=== PATIENT | female | born 1935 | race Caucasian/White ===

== ENCOUNTER 2016-11-20 16:17 | Emergency (ER) | payer MEDICARE, BC ==
--- NOTE | 2016-11-20 20:29 | RAD ---
INDICATION: RIGHT lower extremity pain and edema mid thigh to ankle. COMPARISON: None. TECHNIQUE: Jones scale, color Doppler, and spectral analysis of the deep veins of the RIGHT lower extremity. Vessel compression, phasicity, and augmentation assessed. REPORT: The RIGHT common femoral, great saphenous, profunda femoral, femoral, popliteal, peroneal, and posterior tibial veins are patent. Obesity limits assessment of the peroneal veins. Subcutaneous edema noted most prominent at the posterior mid calf. No loculated fluid collection visualized. Patency of the contralateral common femoral vein documented. IMPRESSION: No evidence for RIGHT lower extremity deep venous thrombosis.
--- NOTE | 2016-11-20 21:22 | ED ---
Marion Bolaños Rebecca, scribed for Kirk Heredia MD on 11/20/16 at 1845 . Lower Extremity - HPI Summary HPI Summary: Pt is an 81 y/o F who presents to ED c/o R knee pain. Knee pain is acute on chronic and worsened yesterday. Pain is discrete to the R knee, is characterized as sharp and currently ranked 6/10. Sx aggravated by ambulation, alleviated by Tramadol and Prednisone. Denies any other sx including fever. Pt reports recent dx of both menisci in her knee being torn. Was previously on Tramadol and Prednisone to treat pain, which had been alleviating sx, but she no longer have prescriptions for them. Reports that she had been walking with her cane, as opposed to a walker. Was evaluated by Dr. Haddad who wanted to do surgery but decided against it due to her PMHx. Pt was referred to [facility] ED by her PCP for further evaluation. - History of Current Complaint Chief Complaint: EDExtremityLower Stated Complaint: RIGHT LEG PAIN Time Seen by Provider: 11/20/16 18:31 Hx Obtained From: Patient Onset of Pain: Prior to Arrival Onset/Duration: Days - 2 days ago Severity Initially: Moderate Severity Currently: Severe Pain Intensity: 9 Pain Scale Used: 0-10 Numeric Timing: Constant Location: Is Discrete @ - R knee Character Of Pain: Sharp Associated Signs And Symptoms: Positive: Knee Pain - Right. Negative: Fever Aggravating Factor(s): Ambulation Alleviating Factor(s): Other - Tramadol and Prednisone Able to Bear Weight: Yes - with a cane/walker - Allergies/Home Medications Allergies/Adverse Reactions: Allergies Allergy/AdvReac Type Severity Reaction Status Date / Time Codeine Allergy Intermediate Hives Verified 08/09/14 14:20 opioid analgesics Allergy Unknown Rash Uncoded 08/09/14 14:20 PMH/Surg Hx/FS Hx/Imm Hx Endocrine/Hematology History: Reports: Hx Diabetes Cardiovascular History: Reports: Hx Coronary Artery Disease, Hx Hypercholesterolemia, Hx Hypertension, Hx Valvular Heart Disease - mitral valve Denies: Hx Myocardial Infarction Respiratory History: Reports: Hx Chronic Obstructive Pulmonary Disease (COPD), Hx Sleep Apnea - new dx 04/2014 Denies: Hx Asthma Musculoskeletal History: Reports: Hx Back Problems - chronic pain Sensory History: Reports: Hx Macular Degeneration Opthamlomology History: Reports: Hx Macular Degeneration Neurological History: Reports: Hx Transient Ischemic Attacks (TIA) - 2007, Other Neuro Impairments/Disorders - vertigo - Cancer History Cancer Type, Location and Year: RIGHT BREAST 2012 Hx Chemotherapy: Yes - Surgical History Surgery Procedure, Year, and Place: [facility]. CHOLECYSTECTOMY. APPENDECTOMY. CATARACT SURGERY. CARDIAC STENT. lUMPECTOMY AXILLARY DISSECTION Infectious Disease History: Yes Infectious Disease History: Denies: Traveled Outside the [place] in Last 30 Days - Family History Known Family History: Positive: Diabetes - Social History Alcohol Use: None Substance Use Type: Reports: None Smoking Status (MU): Former Smoker Amount Used/How Often: 2 PPD Have You Smoked in the Last Year: No Review of Systems Negative: Fever Positive: Arthralgia - R knee pain secondary to menisci tear All Other Systems Reviewed And Are Negative: Yes Physical Exam - Summary Physical Exam Summary: Vital signs: reviewed General: Patient is comfortable lying in stretcher with no signs of distress HEENT: within normal limits Lungs: CTA B/L CVS: S1 & S2 present. No murmurs appreciated. Abdomen: Soft, NT, Positive BS. Extremities: FROM x4, no edema, no cyanosis, positive pulses Neuro: Alert and oriented x 3. No acute neurological deficits. Skin: Warm and dry Vital Signs On Initial Exam: Initial Vitals Temp Pulse Resp BP Pulse Ox 97.1 F 78 20 167/63 92 11/20/16 16:27 11/20/16 16:27 11/20/16 16:27 11/20/16 16:27 11/20/16 16:27 Diagnostics - Vital Signs Vital Signs Temp Pulse Resp BP Pulse Ox 11/20/16 16:27 97.1 F 78 20 167/63 92 - Laboratory Lab Statement: Any lab studies that have been ordered have been reviewed, and results considered in the medical decision making process. - Ultrasound No standard instances Ultrasound Interpretation Completed By: Radiologist - Venous Doppler Study: No evidence for RIGHT lower extremity deep venous thrombosis. Re-Evaluation - Re-Evaluation First Eval Re-Evaluation Time: 20:42 Change: Improved Comment: Pt is feeling signficantly better. Lower Extremity Course/Dx - Course Assessment/Plan: 81 y/o F who presents to ED with a CC of R knee pain. She reports that she has Hx of meniscal tears for which she used ultram and prednisone 1 month ago. In the last couple days she has been overdoing it, cleaning bathrooms in the house and now she is having R knee pain, similar to previous episode. She has no Hx of trauma. Positive heavy lifting. PCP sent to ED to r/o DVT. US shows no DVT. Pt already had prescription for ultram, therefore pt will be d/c to home with a follow up with PCP and orthopedist. Pt is hemodynamically stable and AxO x3. I discussed all my findings and test results with the patient. Patient understands and agrees. Patient was instructed to return to the emergency room immediately if any of the symptoms return or worsens. Patient understands and agrees. Plan of care was discussed with the patient and patient understands and agrees with the plan of care. All questions were answered at patient satisfaction. There were no further complaints or concerns. Patient was instructed to follow up with primary care physician within 3 to 5 days. Patient is hemodynamically stable. Patient is alert and oriented x 3. No acute neurological deficits. - Diagnoses Provider Diagnoses: Knee pain, Chronic meniscal tear of knee Discharge - Discharge Plan Condition: Stable Disposition: HOME Patient Education Materials: Knee Pain (ED) Referrals: Tasha Kaye MD [Primary Care Provider] - 3 Days (Follow up with your primary care physician within the next 3 days. ) Eleazar Marquez MD [Medical Doctor] - 3 Days (Follow up with your orthopedist, Dr. Marquez, within the next 3 days. ) Additional Instructions: Return to ED for any returning or worsening of symptoms. The documentation as recorded by the Marion barker Rebecca accurately reflects the service I personally performed and the decisions made by me, Kirk Heredia MD.
[2016-11-20 21:27] VITALS: BP 132/70
== END 2016-11-20 21:26 | disposition home or self-care (01) ==
LOC: ED 16:17
DX: S83.206A Unspecified tear of unspecified meniscus, current injury, right knee, initial encounter (principal); M54.9 Dorsalgia, unspecified; G89.29 Other chronic pain; I25.10 Atherosclerotic heart disease of native coronary artery without angina pectoris; E78.00 Pure hypercholesterolemia, unspecified; Z86.73 Personal history of transient ischemic attack (TIA), and cerebral infarction without residual deficits; J44.9 Chronic obstructive pulmonary disease, unspecified; G47.30 Sleep apnea, unspecified; Z87.891 Personal history of nicotine dependence; Z88.5 Allergy status to narcotic agent; E11.9 Type 2 diabetes mellitus without complications; R60.0 Localized edema
CPT/HCPCS: 99284

== ENCOUNTER 2017-12-18 04:02 | Emergency (ER) | payer MEDICARE, BC ==
[2017-12-18] MEDS ORDERED: Ondansetron INJ* 2 MG/ML VIAL IV ONE (04:38)
[2017-12-18] MEDS ORDERED: Morphine INJ* 4 MG/ML 1 ML CARPUJECT IV ONE ×2 (04:38→05:59)
[2017-12-18 05:20] LABS: ABS Basophils 0 10^3/ul (0-0.2); ABS Eosinophils 0.1 10^3/ul (0-0.6); ABS Lymphocytes 1.3 10^3/ul (1.0-4.8); ABS Monocytes 0.7 10^3/ul (0-0.8); ABS Neutrophils 9.6 10^3/ul (1.5-7.7); ABS Nucleated RBC 0 10^3/ul; Eosinophil % 1.1 % (0-6); Hematocrit 37 % (35-47); Hemoglobin 12.1 g/dl (12.0-16.0); Lymphocyte % 11.1 % (25-47); Mean Corpuscular HGB Conc 33 g/dl (31-36); Mean Corpuscular Hemoglobin 31 pg (27-31); Mean Corpuscular Volume 94 fL (80-97); Mean Platelet Volume 9 um3 (7.4-10.4); Nucleated Red Blood Cells % 0; Platelet Count 202 10^3/ul (150-450); Red Blood Count 3.98 10^6/ul (4.0-5.4); Red Cell Distribution Width 16 % (10.5-15); White Blood Count 11.8 10^3/ul (3.5-10.8)
[2017-12-18 05:34] LABS: EGFR Non-African American 34.6 (>60)
[2017-12-18 05:58] LABS: INR 1.59 (0.77-1.02)
--- NOTE | 2017-12-18 07:25 | ED ---
Tabitha Bolaños Thomas, scribed for Kumar Thakkar MD on 12/18/17 at 0433 . Throat Pain/Nasal Congestion - HPI Summary HPI Summary: The patient is an 82 year old female presenting with left-sided ear pain and left-sided jaw pain for the last three days. She has not been able to open up her mouth fully. She suspects she may have injured her jaw while eating raw carrots. She rates the pain 5/10. She feels dehydrated. She has not been eating normally today. - History of Current Complaint Chief Complaint: EDEarPain Hx Obtained From: Patient Onset/Duration: Lasting Days - 3, Still Present Severity: Moderate Associated Signs And Symptoms: Positive: Negative Cough: None Related History: Other (Noted In Comments) - May have hurt jaw while eating carrot - Allergies/Home Medications Allergies/Adverse Reactions: Allergies Allergy/AdvReac Type Severity Reaction Status Date / Time MS Codeine [Codeine] Allergy Intermediate Hives Verified 12/18/17 04:07 opioid analgesics Allergy Unknown Rash Uncoded 12/18/17 04:07 PMH/Surg Hx/FS Hx/Imm Hx Endocrine/Hematology History: Reports: Hx Diabetes Cardiovascular History: Reports: Hx Coronary Artery Disease, Hx Hypercholesterolemia, Hx Hypertension, Hx Valvular Heart Disease - mitral valve Denies: Hx Myocardial Infarction Respiratory History: Reports: Hx Chronic Obstructive Pulmonary Disease (COPD), Hx Sleep Apnea - new dx 04/2014 Denies: Hx Asthma Musculoskeletal History: Reports: Hx Back Problems - chronic pain Sensory History: Reports: Hx Macular Degeneration Opthamlomology History: Reports: Hx Macular Degeneration Neurological History: Reports: Hx Transient Ischemic Attacks (TIA) - 2006, Other Neuro Impairments/Disorders - vertigo - Cancer History Cancer Type, Location and Year: RIGHT BREAST 2011 Hx Chemotherapy: Yes - Surgical History Surgery Procedure, Year, and Place: [facility]. CHOLECYSTECTOMY. APPENDECTOMY. CATARACT SURGERY. CARDIAC STENT. lUMPECTOMY AXILLARY DISSECTION Infectious Disease History: No Infectious Disease History: Denies: Traveled Outside the [place] in Last 30 Days - Family History Known Family History: Positive: Diabetes - Social History Alcohol Use: None Substance Use Type: Reports: None Smoking Status (MU): Former Smoker Amount Used/How Often: 2 PPD Have You Smoked in the Last Year: No Review of Systems Negative: Fever Positive: Ear Ache All Other Systems Reviewed And Are Negative: Yes Physical Exam - Summary Physical Exam Summary: General: well-appearing, no pain distress Skin: warm, color reflects adequate perfusion, dry Head: normal Eyes: EOMI, PRISCA ENT: She is tender at the angle of the left jaw and at the TMJ. She has serous otitis media of the left TM. Oral mucosa is dry. She does not open her mouth more than 2 cm. Neck: supple, nontender Respiratory: CTA, breath sounds present Cardiovascular: RRR Abdomen: soft, nontender Bowel: present Musculoskeletal: normal, strength/ROM intact Neurological: normal, sensory/motor intact, A&O x3 Psychological: affect/mood appropriate Triage Information Reviewed: Yes Vital Signs On Initial Exam: Initial Vitals Temp Pulse Resp BP Pulse Ox 97.0 F 87 20 190/82 94 12/18/17 04:04 12/18/17 04:04 12/18/17 04:04 12/18/17 04:04 12/18/17 04:04 Vital Signs Reviewed: Yes Diagnostics - Vital Signs Vital Signs Temp Pulse Resp BP Pulse Ox 12/18/17 04:04 97.0 F 87 20 190/82 94 - Laboratory Lab Results: Lab Results 12/18/17 12/18/17 12/18/17 Range/Units 05:00 05:00 05:00 WBC 11.8 H (3.5-10.8) 10^3/ul RBC 3.98 L (4.0-5.4) 10^6/ul Hgb 12.1 (12.0-16.0) g/dl Hct 37 (35-47) % MCV 94 (80-97) fL MCH 31 (27-31) pg MCHC 33 (31-36) g/dl RDW 16 H (10.5-15) % Plt Count 202 (150-450) 10^3/ul MPV 9 (7.4-10.4) um3 Neut % (Auto) 81.1 (38-83) % Lymph % (Auto) 11.1 L (25-47) % [place] % (Auto) 6.3 (1-9) % Eos % (Auto) 1.1 (0-6) % Baso % (Auto) 0.4 (0-2) % Absolute Neuts (auto) 9.6 H (1.5-7.7) 10^3/ul Absolute Lymphs (auto) 1.3 (1.0-4.8) 10^3/ul Absolute Monos (auto) 0.7 (0-0.8) 10^3/ul Absolute Eos (auto) 0.1 (0-0.6) 10^3/ul Absolute Basos (auto) 0 (0-0.2) 10^3/ul Absolute Nucleated RBC 0 10^3/ul Nucleated RBC % 0 INR (Anticoag Therapy) 1.59 H (0.77-1.02) APTT 35.2 (26.0-36.3) seconds Sodium 138 (133-145) mmol/L Potassium 4.6 (3.5-5.0) mmol/L Chloride 103 (101-111) mmol/L Carbon Dioxide 26 (22-32) mmol/L Anion Gap 9 (2-11) mmol/L BUN 31 H (6-24) mg/dL Creatinine 1.45 H (0.51-0.95) mg/dL Est GFR ( Amer) 44.5 (>60) Est GFR (Non-Af Amer) 34.6 (>60) BUN/Creatinine Ratio 21.4 H (8-20) Glucose 147 H (70-100) mg/dL Lactic Acid (0.5-2.0) mmol/L Calcium 10.2 (8.6-10.3) mg/dL Total Bilirubin 0.50 (0.2-1.0) mg/dL AST 25 (13-39) U/L ALT 22 (7-52) U/L Alkaline Phosphatase 81 (34-104) U/L C-Reactive Protein 8.40 H (< 5.00) mg/L Total Protein 7.6 (6.4-8.9) g/dL Albumin 4.0 (3.2-5.2) g/dL Globulin 3.6 (2-4) g/dL Albumin/Globulin Ratio 1.1 (1-3) 12/18/17 Range/Units 05:00 WBC (3.5-10.8) 10^3/ul RBC (4.0-5.4) 10^6/ul Hgb (12.0-16.0) g/dl Hct (35-47) % MCV (80-97) fL MCH (27-31) pg MCHC (31-36) g/dl RDW (10.5-15) % Plt Count (150-450) 10^3/ul MPV (7.4-10.4) um3 Neut % (Auto) (38-83) % Lymph % (Auto) (25-47) % [place] % (Auto) (1-9) % Eos % (Auto) (0-6) % Baso % (Auto) (0-2) % Absolute Neuts (auto) (1.5-7.7) 10^3/ul Absolute Lymphs (auto) (1.0-4.8) 10^3/ul Absolute Monos (auto) (0-0.8) 10^3/ul Absolute Eos (auto) (0-0.6) 10^3/ul Absolute Basos (auto) (0-0.2) 10^3/ul Absolute Nucleated RBC 10^3/ul Nucleated RBC % INR (Anticoag Therapy) (0.77-1.02) APTT (26.0-36.3) seconds Sodium (133-145) mmol/L Potassium (3.5-5.0) mmol/L Chloride (101-111) mmol/L Carbon Dioxide (22-32) mmol/L Anion Gap (2-11) mmol/L BUN (6-24) mg/dL Creatinine (0.51-0.95) mg/dL Est GFR ( Amer) (>60) Est GFR (Non-Af Amer) (>60) BUN/Creatinine Ratio (8-20) Glucose (70-100) mg/dL Lactic Acid 1.0 (0.5-2.0) mmol/L Calcium (8.6-10.3) mg/dL Total Bilirubin (0.2-1.0) mg/dL AST (13-39) U/L ALT (7-52) U/L Alkaline Phosphatase (34-104) U/L C-Reactive Protein (< 5.00) mg/L Total Protein (6.4-8.9) g/dL Albumin (3.2-5.2) g/dL Globulin (2-4) g/dL Albumin/Globulin Ratio (1-3) Result Diagrams: 12/18/17 05:00 12/18/17 05:00 Lab Statement: Any lab studies that have been ordered have been reviewed, and results considered in the medical decision making process. - CT CT Maxillofacial CT Interpretation Completed By: ED Physician - CT is ordered--see [employer] CT Brain CT Interpretation Completed By: ED Physician [facility]Spine CT Interpretation Completed By: ED Physician - [facility] Course/Dx - Course Course Of Treatment: Medications reviewed. BP noted and patient urged primary care follow-up. Allergies noted. CT REPORT AND DISPOSITION PENDING AT SHIFT CHANGE - Diagnoses Provider Diagnoses: Uncontrolled hypertension, Jaw pain, Ear pain, left Discharge - Discharge Plan Condition: Stable Disposition: OTHER Discharge Disposition Comment: . Referrals: Tasha Kaey MD [Primary Care Provider] - The documentation as recorded by the Tabitha barker Thomas accurately reflects the service I personally performed and the decisions made by me, Kumar Thakkar MD.
--- NOTE | 2017-12-18 07:31 | RAD ---
HISTORY: ear pain COMPARISONS: March 07, 2017 TECHNIQUE: Multiple contiguous axial CT scans were obtained of the head without intravenous contrast. FINDINGS: HEMORRHAGE/INFARCT: There is no hemorrhage or acute infarct. MASSES/SHIFT: There is no mass or shift. EXTRA-AXIAL SPACES: There are no extra-axial fluid collections. SULCI AND VENTRICLES: The sulci and ventricles are normal in size and position for the patient's stated age. CEREBRUM: There is hypoattenuation of the periventricular and subcortical white matter. BRAINSTEM: There are no focal parenchymal abnormalities. CEREBELLUM: There are no focal parenchymal abnormalities. VESSELS: The vessels are grossly normal. PARANASAL SINUSES: The paranasal sinuses are clear. ORBITS: The orbits are unremarkable. BONES AND SOFT TISSUE: No bone or soft tissue abnormalities are noted. OTHER: None IMPRESSION: NO ACUTE INTRACRANIAL PATHOLOGY. CHRONIC SMALL VESSEL ISCHEMIC CHANGE.
--- NOTE | 2017-12-18 07:34 | RAD ---
HISTORY: Left neck pain, ear pain COMPARISONS: None TECHNIQUE: Multiple contiguous axial CT scans were obtained of the face without intravenous contrast, with coronal and sagittal multiplanar reformations. FINDINGS: BONES: There is no displaced fracture or dislocation. The orbital rim is intact. The zygomatic arch is intact. The pterygoid plates are intact. ORBITS: The globes are round. The optic nerves are symmetric. The extraocular musculature is normal. There is no post septal or intraconal inflammatory change. There is no retrobulbar hematoma. PARANASAL SINUSES: There is mucosal thickening of the sphenoid sinus. There is a small air-fluid level within the sphenoid sinus. BRAIN AND SOFT TISSUE: Unremarkable. OTHER: None. IMPRESSION: 1. NO FACIAL FRACTURE. 2. MINIMAL SINUS MUCOSAL INFLAMMATORY DISEASE, WITH AN AIR-FLUID LEVEL IN THE SPHENOID SINUS. IN THE CORRECT CLINICAL SETTING, THIS MAY REPRESENT ACUTE SINUSITIS
--- NOTE | 2017-12-18 08:10 | RAD ---
HISTORY: Left neck pain COMPARISONS: None TECHNIQUE: Multiple contiguous axial CT scans were obtained of the cervical spine without intravenous contrast, with coronal and sagittal multiplanar reformations. FINDINGS: BRAIN: The visualized brain is unremarkable CENTRAL CANAL: Evaluation of the central canal is limited on CT technique; however, there is no obvious canalicular mass or epidural hemorrhage. ALIGNMENT: The alignment is normal, without subluxation or dislocation. VERTEBRAL BODIES: There is multilevel anterolateral marginal osteophyte formation. There is diffuse osteopenia. There is no displaced fracture. Incidentally noted is a dysraphic defect of the posterior arch of C1. Incidentally noted is a persistent subdental synchondrosis. JOINTS: There is uncovertebral and facet osteoarthritis. MUSCULATURE: Unremarkable INTERVERTEBRAL DISCS: There is diffuse loss of intervertebral disc height. AXIAL IMAGES: C2-C3: There is no osseous neural foraminal narrowing or central canal stenosis. C3-C4: There is no osseous neural foraminal narrowing or central canal stenosis. C4-C5: There is a calcified central disc protrusion versus posterior osteophyte measuring 0.3 cm in depth. There is bilateral uncovertebral hypertrophy. There is no significant osseous neural foraminal narrowing or central canal stenosis. C5-C6: There is bilateral vertebral hypertrophy with mild right neuroforaminal narrowing. There is mild narrowing of the central canal. C6-C7: There is bilateral uncovertebral hypertrophy. There is moderate bilateral neural foraminal narrowing. There is mild narrowing of the central canal. C7-T1: There is no osseous neural foraminal narrowing or central canal stenosis. SOFT TISSUES: There is biapical centrilobular emphysematous change. There is pleural parenchymal scarring of the lung apices bilaterally. There is calcification of the carotid bifurcations. The prevertebral fat stripe is preserved. The thyroid gland is atrophic OTHER: None. IMPRESSION: 1. OSTEOPENIA. 2. DEGENERATIVE DISC DISEASE AND OSTEOARTHRITIS. 3. EMPHYSEMA. 4. ATHEROSCLEROSIS. 5. THERE IS MULTILEVEL NEURAL FORAMINAL NARROWING RIGHT ABOVE. 6. THERE IS MILD NARROWING OF CENTRAL CANAL AT C5-C6 AND C6-C7.
[2017-12-18] MEDS ORDERED: NS 0.9% 1000 ML* 2,000 ML IV ONE (08:42)
[2017-12-18] MEDS ORDERED: Ketorolac INJ* 30 MG/ML 1 ML VIAL IV PUSH ONE (08:57)
[2017-12-18] MEDS ORDERED: Diazepam SYRINGE* 5 MG/ML 2 ML SYRINGE (10 MG total) IV ONE (08:57)
[2017-12-18] MEDS ORDERED: Diazepam TAB(*) 5 MG PO ONE (09:56)
[2017-12-18] MEDS ORDERED: Diazepam INJ (NF) 5 MG/ML 10 ML VIAL (50 MG TOTAL) IV ONE (10:00)
[2017-12-18 12:04] VITALS: BP 148/72
--- NOTE | 2017-12-21 13:23 | ED ---
I, Radha Jasso, scribed for Shade Olsen MD on 12/18/17 at 0751 . Progress - Progress Note Progress Note: Pt has serous effusion of L tympanic membrane. - Results/Orders Results/Orders: Maxillofacial CT shows: 1. NO FACIAL FRACTURE. 2. MINIMAL SINUS MUCOSAL INFLAMMATORY DISEASE, WITH AN AIR-FLUID LEVEL IN THE SPHENOID SINUS. IN THE CORRECT CLINICAL SETTING, THIS MAY REPRESENT ACUTE SINUSITIS Brain CT shows: NO ACUTE INTRACRANIAL PATHOLOGY. CHRONIC SMALL VESSEL ISCHEMIC CHANGE. Cervical Spine CT shows: 1. OSTEOPENIA. 2. DEGENERATIVE DISC DISEASE AND OSTEOARTHRITIS. 3. EMPHYSEMA. 4. ATHEROSCLEROSIS. 5. THERE IS MULTILEVEL NEURAL FORAMINAL NARROWING RIGHT ABOVE. 6. THERE IS MILD NARROWING OF CENTRAL CANAL AT C5-C6 AND C6-C7. Re-Evaluation - Re-Evaluation First Eval Re-Evaluation Time: 11:43 Change: Improved - She says she would like to go home. Pt relates pain to significant chewing due to eating lots of raw vegetables over last few weeks. Course/Dx - Course Course Of Treatment: Medications reviewed. BP noted and patient urged primary care follow-up. Allergies noted. The pt has focal tenderness over angle of jaw. Mild trismus. Pt feels much better. She says she would like to go home. Pt relates pain to significant chewing due to eating lots of raw vegetables over last few weeks. CTs are negative. No sign of dental infection, fracture or abscess. Labs unremarkable, does not suspect acute coronary syndrome. All pain is reproducible. ED physician advised pt not to take Valium with Tramadol. - Diagnoses Provider Diagnoses: Uncontrolled hypertension, Jaw pain, Ear pain, left, Strain of masseter muscle , Acute serous otitis media, left ear The documentation as recorded by the Romero barker Stephanie accurately reflects the service I personally performed and the decisions made by me, Shaed Olsen MD.
== END 2017-12-18 12:40 ==
LOC: ED 04:02
DX: I10 Essential (primary) hypertension (principal); M51.35 Other intervertebral disc degeneration, thoracolumbar region; M85.80 Other specified disorders of bone density and structure, unspecified site; I70.90 Unspecified atherosclerosis; H65.92 Unspecified nonsuppurative otitis media, left ear; Y92.9 Unspecified place or not applicable; R68.84 Jaw pain; H92.02 Otalgia, left ear; T14.8XXA Other injury of unspecified body region, initial encounter; X58.XXXA Exposure to other specified factors, initial encounter
CPT/HCPCS: 36415; 70450; 70486; 72125; 80053; 83605; 85025; 85610; 85730; 86140; 96374; 96375; 99283; J1885; J2270; J2405; J3360

== ENCOUNTER 2020-06-30 14:31 | Inpatient (IN) ==
[2020-06-30 17:08] LABS: ABS Eosinophils 0.3 10^3/ul (0-0.6); ABS Lymphocytes 2.3 10^3/ul (1.0-4.8); ABS Neutrophils 9.2 10^3/ul (1.5-7.7); Hematocrit 33 % (35-47); Hemoglobin 10.9 g/dL (12.0-16.0); Mean Corpuscular HGB Conc 33 g/dL (31-36); Mean Corpuscular Hemoglobin 31 pg (27-31); Mean Corpuscular Volume 94 fL (80-97); Mean Platelet Volume 9.6 fL (7.4-10.4); Platelet Count 221 10^3/uL (150-450); Red Blood Count 3.51 10^6 /uL (3.70-4.87); Red Cell Distribution Width 17 % (10-15); White Blood Count 12.8 10^3/uL (3.5-10.8)
[2020-06-30 17:22] LABS: INR 1.48 (0.82-1.09)
[2020-06-30 17:25] LABS: Albumin 3.9 g/dL (3.2-5.2); Albumin/Globulin Ratio 1.1 (1-3); BUN/Creatinine Ratio 31.6 (8-20); Calcium 10.4 mg/dL (8.6-10.3); EGFR African American 38.5 (>60); EGFR Non-African American 31.8 (>60); Globulin 3.6 g/dL (2-4); Potassium 3.8 mmol/L (3.5-5.0); Total Bilirubin 0.3 mg/dL (0.2-1.0); Total Protein 7.5 g/dL (6.4-8.9)
[2020-06-30] MEDS ORDERED: Pantoprazole VIAL 40 MG VIAL IV ONE (21:19)
[2020-06-30] MEDS ORDERED: Pantoprazole 80 mg in NS BAG 80 MG/250 ML BAG IV SCH (22:00)
[2020-06-30] MEDS ORDERED: Albuterol HFA INHALER 8 gm MDI INH PRN (22:54)
[2020-06-30 23:10] LABS: ABS Eosinophils 0.2 10^3/ul (0-0.6); ABS Lymphocytes 2.1 10^3/ul (1.0-4.8); ABS Monocytes 0.9 10^3/ul (0-0.8); ABS Neutrophils 8.8 10^3/ul (1.5-7.7); Eosinophil % 1.9 %; Hematocrit 32 % (35-47); Hemoglobin 10.3 g/dL (12.0-16.0); Lymphocyte % 17.5 %; Mean Corpuscular HGB Conc 32 g/dL (31-36); Mean Corpuscular Hemoglobin 31 pg (27-31); Mean Corpuscular Volume 94 fL (80-97); Mean Platelet Volume 9.2 fL (7.4-10.4); Platelet Count 204 10^3/uL (150-450); Red Blood Count 3.39 10^6 /uL (3.70-4.87); Red Cell Distribution Width 16 % (10-15); White Blood Count 12.1 10^3/uL (3.5-10.8)
[2020-07-01] MEDS: NS 0.9% 1000 ml BAG 1,000 ML IV SCH ×2 (02:56→16:35)
[2020-07-01] MEDS: Tiotropium Brom/Olodaterol MDI INH SCH (07:35)
[2020-07-01] MEDS: Pantoprazole VIAL 40 MG VIAL IV SCH ×2 (08:20→20:55)
[2020-07-01] MEDS ORDERED: fentaNYL 100 mcg/2 ml 50 MCG/ML VIAL ONE (11:35)
[2020-07-01] MEDS ORDERED: Midazolam 10 mg/10 ml VIAL 1 mg/ml 10 ml VIAL (10 mg) ONE (11:35)
[2020-07-01] MEDS: Sucralfate 1 gm SUSP 1 GM/10 ML UDC PO SCH (16:33)
[2020-07-01 17:54] LABS: Hematocrit 28 % (35-47); Hemoglobin 9.3 g/dL (12.0-16.0)
[2020-07-01] MEDS ORDERED: PEG 3000 GI LAVAGE 1 GALLON PO ONE (18:03)
[2020-07-02] MEDS ORDERED: PEG 3000 GI LAVAGE 1 GALLON PO ONE (06:00)
[2020-07-02] MEDS: Pantoprazole VIAL 40 MG VIAL IV SCH ×2 (07:50→19:46)
[2020-07-02] MEDS: Sucralfate 1 gm SUSP 1 GM/10 ML UDC PO SCH ×3 (08:08→16:54)
[2020-07-02] MEDS: Tiotropium Brom/Olodaterol MDI INH SCH (08:10)
[2020-07-02] MEDS: NS 0.9% 1000 ml BAG 1,000 ML IV SCH ×2 (10:34→19:45)
[2020-07-02 12:12] LABS: Hematocrit 27 % (35-47)
[2020-07-02] MEDS ORDERED: Midazolam 10 mg/10 ml VIAL 1 mg/ml 10 ml VIAL (10 mg) ONE (12:16)
[2020-07-02] MEDS ORDERED: fentaNYL 100 mcg/2 ml 50 MCG/ML VIAL ONE (12:16)
[2020-07-02 12:23] LABS: BUN/Creatinine Ratio 23.3 (8-20); Calcium 9.2 mg/dL (8.6-10.3); EGFR African American 41.2 (>60); Potassium 4.8 mmol/L (3.5-5.0)
[2020-07-02] MEDS ORDERED: Ondansetron 4 mg VIAL 2 MG/ML 2 ml VIAL ONE (13:15)
[2020-07-02] MEDS ORDERED: Iodixanol (CONTRAST) 320 MG/ML 100 ML SDV IV ONE (18:32)
[2020-07-02 20:56] LABS: ABS Basophils 0.1 10^3/ul (0-0.2); ABS Eosinophils 0.1 10^3/ul (0-0.6); ABS Lymphocytes 1.3 10^3/ul (1.0-4.8); ABS Monocytes 0.5 10^3/ul (0-0.8); ABS Neutrophils 7.3 10^3/ul (1.5-7.7); Eosinophil % 1.5 %; Hematocrit 25 % (35-47); Hemoglobin 8.3 g/dL (12.0-16.0); Lymphocyte % 14.4 %; Mean Corpuscular HGB Conc 33 g/dL (31-36); Mean Corpuscular Hemoglobin 32 pg (27-31); Mean Corpuscular Volume 95 fL (80-97); Mean Platelet Volume 9.4 fL (7.4-10.4); Platelet Count 165 10^3/uL (150-450); Red Blood Count 2.63 10^6 /uL (3.70-4.87); Red Cell Distribution Width 17 % (10-15); White Blood Count 9.3 10^3/uL (3.5-10.8)
[2020-07-02 21:10] LABS: BUN/Creatinine Ratio 21.3 (8-20); Calcium 8.5 mg/dL (8.6-10.3); EGFR African American 42.9 (>60); EGFR Non-African American 35.4 (>60); Potassium 3.9 mmol/L (3.5-5.0)
[2020-07-03] MEDS: NS 0.9% 1000 ml BAG 1,000 ML IV SCH (04:34)
[2020-07-03] MEDS: Tiotropium Brom/Olodaterol MDI INH SCH (08:30)
[2020-07-03] MEDS: Pantoprazole VIAL 40 MG VIAL IV SCH ×2 (08:44→20:17)
[2020-07-03 08:48] LABS: Hematocrit 24 % (35-47)
[2020-07-03] MEDS: Sucralfate 1 gm SUSP 1 GM/10 ML UDC PO SCH ×3 (08:48→16:35)
[2020-07-03] MEDS ORDERED: Dextrose 50% Syringe 50 ml 25 GM/50 ML SYRINGE IV PUSH PRN (14:08)
[2020-07-03] MEDS ORDERED: Furosemide 40 mg/4 ml IV VIAL IV SLOW PU ONE (16:28)
[2020-07-04 07:42] LABS: Hematocrit 24 % (35-47); Hemoglobin 8.2 g/dL (12.0-16.0); Mean Corpuscular HGB Conc 34 g/dL (31-36); Mean Corpuscular Hemoglobin 32 pg (27-31); Mean Corpuscular Volume 94 fL (80-97); Mean Platelet Volume 9.5 fL (7.4-10.4); Platelet Count 153 10^3/uL (150-450); Red Blood Count 2.58 10^6 /uL (3.70-4.87); Red Cell Distribution Width 17 % (10-15); White Blood Count 10.8 10^3/uL (3.5-10.8)
[2020-07-04 07:59] LABS: BUN/Creatinine Ratio 14.7 (8-20); Calcium 8.4 mg/dL (8.6-10.3); EGFR African American 39.9 (>60); Potassium 4.1 mmol/L (3.5-5.0)
[2020-07-04] MEDS: Pantoprazole VIAL 40 MG VIAL IV SCH ×3 (09:09→20:24)
[2020-07-04] MEDS: Sucralfate 1 gm SUSP 1 GM/10 ML UDC PO SCH ×3 (09:12→16:37)
[2020-07-04] MEDS ORDERED: Furosemide 40 mg/4 ml IV VIAL IV SLOW PU ONE ×2 (10:18→15:53)
[2020-07-04] MEDS: Tiotropium Brom/Olodaterol MDI INH SCH ×2 (12:16→14:23)
[2020-07-04] MEDS ORDERED: Perflutren Lipid Microsphere 3 ML VIAL ONE (15:38)
[2020-07-04] MEDS ORDERED: Furosemide 20 mg/2 ml IV VIAL IV SLOW PU ONE (15:53)
[2020-07-05] MEDS: Tiotropium Brom/Olodaterol MDI INH SCH (07:37)
[2020-07-05] MEDS: Sucralfate 1 gm SUSP 1 GM/10 ML UDC PO SCH ×3 (08:14→16:26)
[2020-07-05] MEDS: Pantoprazole VIAL 40 MG VIAL IV SCH ×2 (08:50→20:15)
[2020-07-05 09:53] LABS: Hematocrit 26 % (35-47); Hemoglobin 8.6 g/dL (12.0-16.0); Mean Corpuscular HGB Conc 34 g/dL (31-36); Mean Corpuscular Hemoglobin 31 pg (27-31); Mean Corpuscular Volume 94 fL (80-97); Mean Platelet Volume 9.7 fL (7.4-10.4); Platelet Count 169 10^3/uL (150-450); Red Blood Count 2.75 10^6 /uL (3.70-4.87); Red Cell Distribution Width 17 % (10-15); White Blood Count 12.1 10^3/uL (3.5-10.8)
[2020-07-05 10:11] LABS: BUN/Creatinine Ratio 16.4 (8-20); Calcium 8.6 mg/dL (8.6-10.3); EGFR African American 39.3 (>60); EGFR Non-African American 32.5 (>60); Potassium 3.7 mmol/L (3.5-5.0)
[2020-07-05] MEDS ORDERED: Furosemide 40 mg/4 ml IV VIAL IV SLOW PU ONE (11:35)
[2020-07-06 06:39] LABS: ABS Basophils 0.1 10^3/ul (0-0.2); ABS Eosinophils 0.3 10^3/ul (0-0.6); ABS Lymphocytes 1.6 10^3/ul (1.0-4.8); ABS Monocytes 0.8 10^3/ul (0-0.8); ABS Neutrophils 9.9 10^3/ul (1.5-7.7); Eosinophil % 2.7 %; Hematocrit 26 % (35-47); Hemoglobin 8.8 g/dL (12.0-16.0); Lymphocyte % 12.9 %; Mean Corpuscular HGB Conc 34 g/dL (31-36); Mean Corpuscular Hemoglobin 31 pg (27-31); Mean Corpuscular Volume 93 fL (80-97); Mean Platelet Volume 9.4 fL (7.4-10.4); Platelet Count 180 10^3/uL (150-450); Red Blood Count 2.82 10^6 /uL (3.70-4.87); Red Cell Distribution Width 17 % (10-15); White Blood Count 12.7 10^3/uL (3.5-10.8)
[2020-07-06 06:50] LABS: BUN/Creatinine Ratio 18.7 (8-20); Calcium 8.9 mg/dL (8.6-10.3); EGFR African American 34.3 (>60); EGFR Non-African American 28.4 (>60); Potassium 3.7 mmol/L (3.5-5.0)
[2020-07-06] MEDS: Tiotropium Brom/Olodaterol MDI INH SCH (07:37)
[2020-07-06] MEDS: Pantoprazole VIAL 40 MG VIAL IV SCH ×2 (09:10→20:17)
[2020-07-06] MEDS: Sucralfate 1 gm SUSP 1 GM/10 ML UDC PO SCH ×3 (09:12→18:11)
[2020-07-06] MEDS ORDERED: Furosemide 40 mg/4 ml IV VIAL IV SLOW PU ONE (10:59)
[2020-07-07 06:34] LABS: ABS Basophils 0.1 10^3/ul (0-0.2); ABS Eosinophils 0.3 10^3/ul (0-0.6); ABS Lymphocytes 1.5 10^3/ul (1.0-4.8); ABS Monocytes 0.8 10^3/ul (0-0.8); ABS Neutrophils 9.8 10^3/ul (1.5-7.7); Eosinophil % 2.6 %; Hematocrit 28 % (35-47); Hemoglobin 9.6 g/dL (12.0-16.0); Lymphocyte % 11.7 %; Mean Corpuscular HGB Conc 35 g/dL (31-36); Mean Corpuscular Hemoglobin 32 pg (27-31); Mean Corpuscular Volume 92 fL (80-97); Mean Platelet Volume 10.1 fL (7.4-10.4); Platelet Count 202 10^3/uL (150-450); Red Blood Count 3.01 10^6 /uL (3.70-4.87); Red Cell Distribution Width 17 % (10-15); White Blood Count 12.4 10^3/uL (3.5-10.8)
[2020-07-07 06:52] LABS: BUN/Creatinine Ratio 21.5 (8-20); Calcium 8.6 mg/dL (8.6-10.3); EGFR African American 28.7 (>60); EGFR Non-African American 23.7 (>60); Potassium 3.2 mmol/L (3.5-5.0)
[2020-07-07] MEDS ORDERED: Potassium Chloride LIQUID 20 MEQ/15 ML LIQUID PO ONE (07:50)
[2020-07-07] MEDS: Tiotropium Brom/Olodaterol MDI INH SCH (08:39)
[2020-07-07] MEDS: Sucralfate 1 gm SUSP 1 GM/10 ML UDC PO SCH ×2 (10:04→12:48)
[2020-07-07 14:42] VITALS: BP 98/48
[2020-07-07 14:42] LABS: BUN/Creatinine Ratio 23.5 (8-20); Blood Urea Nitrogen 46 mg/dL (6-24); CO2 Carbon Dioxide 31 mmol/L (22-32); Calcium 8.9 mg/dL (8.6-10.3); Chloride 96 mmol/L (101-111); EGFR African American 29.3 (>60); EGFR Non-African American 24.2 (>60); Glucose 105 mg/dL (70-100); Sodium 135 mmol/L (135-145)
[2020-07-07 16:02] LABS: Anion Gap 8 mmol/L (2-11)
== END 2020-07-07 17:35 | disposition home or self-care (01) | DRG 377 ==
LOC: ED 14:31 → MED 14:31
PROVIDERS: ADMIT Internal Medicine; ATTEND Internal Medicine

== ENCOUNTER 2020-09-19 16:52 | Inpatient (IN) ==
[2020-09-19] MEDS ORDERED: Dextrose 50% Syringe 50 ml 25 GM/50 ML SYRINGE IV PUSH ONE (17:04)
[2020-09-19] MEDS ORDERED: NS 0.9% 1000 ml BAG 1,000 ML IV ONE (17:11)
[2020-09-19 17:51] LABS: ABS Lymphocytes 0.4 10^3/ul (1.0-4.8); ABS Monocytes 0.1 10^3/ul (0-0.8); ABS Neutrophils 3.7 10^3/ul (1.5-7.7); Hematocrit 34 % (35-47); Hemoglobin 11.1 g/dL (12.0-16.0); Lymphocyte % 9.7 %; Mean Corpuscular HGB Conc 32 g/dL (31-36); Mean Corpuscular Hemoglobin 29 pg (27-31); Mean Corpuscular Volume 89 fL (80-97); Mean Platelet Volume 9.7 fL (7.4-10.4); Nucleated Red Blood Cells % 0.1; Platelet Count 129 10^3/uL (150-450); Red Blood Count 3.85 10^6 /uL (3.70-4.87); Red Cell Distribution Width 18 % (10-15); White Blood Count 4.2 10^3/uL (3.5-10.8)
[2020-09-19 18:06] LABS: Activated Partial Thrombo Time 30.9 seconds (26.0-38.0); INR 1.46 (0.82-1.09)
[2020-09-19] MEDS ORDERED: Cefepime 1 GM in Dextrose 1 GM/50 ML BAG IV ONE (18:14)
[2020-09-19 18:19] LABS: Troponin I 0.03 ng/mL (<0.03)
[2020-09-19 18:22] LABS: Influenza A Molecular Negative (Negative); Influenza B Molecular Negative (Negative)
[2020-09-19 18:50] LABS: ALT 16 U/L (7-52); AST 44 U/L (13-39); Albumin 3.2 g/dL (3.2-5.2); Albumin/Globulin Ratio 1.1 (1-3); Alkaline Phosphatase 49 U/L (34-104); Anion Gap 5 mmol/L (2-11); BUN/Creatinine Ratio 18.1 (8-20); Blood Urea Nitrogen 25 mg/dL (6-24); C Reactive Protein 71.05 mg/L (<8.01); CO2 Carbon Dioxide 23 mmol/L (22-32); Chloride 107 mmol/L (101-111); EGFR Non-African American 36.3 (>60); Glucose 218 mg/dL (70-100); Potassium 4.3 mmol/L (3.5-5.0); Sodium 135 mmol/L (135-145); Total Protein 6.2 g/dL (6.4-8.9)
[2020-09-19] MEDS ORDERED: cefTRIAXone 1 gm/50 mL NS BAG 1 GM/50 ML BAG ONE (20:24)
[2020-09-19] MEDS ORDERED: Albuterol HFA INHALER 8 gm MDI INH PRN (20:55)
[2020-09-19] MEDS ORDERED: D5LR 1000 ml BAG 1,000 ML IV SCH (21:00)
[2020-09-19] MEDS: Azithromycin 500 mg/250 ml NS 500 MG/250 ML BAG IVPB SCH (21:40)
[2020-09-19] MEDS: NFT: IPRATROPIUM BR (NF)0.03% NASAL 1 SPRAY BTL BOTH NARES SCH (22:23)
[2020-09-19] MEDS ORDERED: Furosemide 40 mg/4 ml IV VIAL IV SLOW PU ONE (22:50)
[2020-09-19] MEDS ORDERED: Furosemide 40 mg/4 ml IV VIAL ONE (22:51)
[2020-09-19] MEDS ORDERED: Ondansetron 4 mg VIAL 2 MG/ML 2 ml VIAL ONE (22:52)
[2020-09-19] MEDS ORDERED: methylPREDNISolone 125 mg 2 ML VIAL IV ONE (23:07)
[2020-09-19] MEDS: Albuterol/Ipratropium NEB.SOL (2.5/0.5 MG) 3 ML NEB.SOLN INH SCH (23:46)
[2020-09-19 23:55] LABS: TSH Ultra Thyroid Stim Horm 7.29 mcIU/mL (0.34-5.60)
[2020-09-20] MEDS: methylPREDNISolone SOD 40 mg/ml 1 ml VIAL IV SCH ×4 (00:29→23:23)
[2020-09-20 01:16] LABS: Magnesium 1.6 mg/dL (1.9-2.7)
[2020-09-20 01:32] LABS: Troponin I 0.04 ng/mL (<0.03)
[2020-09-20 01:38] LABS: Urine Appearance Cloudy; Urine Bilirubin Negative (Negative); Urine Blood Negative (Negative); Urine Color Yellow; Urine Glucose Negative (Negative); Urine Ketones Negative (Negative); Urine Nitrite Negative (Negative); Urine Protein 1+(30 mg/dL) (Negative); Urine Specific Gravity 1.012 (1.010-1.030); Urine Urobilinogen Negative (Negative)
[2020-09-20 01:50] LABS: Free T4 0.61 ng/dL (0.61-1.12)
[2020-09-20 01:54] LABS: Total T3 47 ng/dL (87-178)
[2020-09-20 02:05] LABS: Urine Bacteria Absent (Absent); Urine Red Blood Cell Absent (Absent); Urine Squamous Epithelial Cell Present (Absent); Urine White Blood Cell Trace(0-5/hpf) (Absent)
[2020-09-20] MEDS: Albuterol/Ipratropium NEB.SOL (2.5/0.5 MG) 3 ML NEB.SOLN INH SCH ×6 (03:44→23:39)
[2020-09-20 05:36] LABS: ABS Lymphocytes 0.4 10^3/ul (1.0-4.8); ABS Monocytes 0.1 10^3/ul (0-0.8); ABS Neutrophils 4.8 10^3/ul (1.5-7.7); Hematocrit 37 % (35-47); Hemoglobin 11.6 g/dL (12.0-16.0); Lymphocyte % 7.5 %; Mean Corpuscular HGB Conc 32 g/dL (31-36); Mean Corpuscular Hemoglobin 29 pg (27-31); Mean Corpuscular Volume 90 fL (80-97); Mean Platelet Volume 10.1 fL (7.4-10.4); Nucleated Red Blood Cells % 0.1; Platelet Count 125 10^3/uL (150-450); Red Blood Count 4.08 10^6 /uL (3.70-4.87); Red Cell Distribution Width 18 % (10-15); White Blood Count 5.3 10^3/uL (3.5-10.8)
[2020-09-20 05:55] LABS: ALT 20 U/L (7-52); AST 53 U/L (13-39); Albumin 3.4 g/dL (3.2-5.2); Albumin/Globulin Ratio 1.1 (1-3); Alkaline Phosphatase 56 U/L (34-104); Anion Gap 8 mmol/L (2-11); BUN/Creatinine Ratio 16.7 (8-20); Blood Urea Nitrogen 25 mg/dL (6-24); CO2 Carbon Dioxide 22 mmol/L (22-32); Calcium 8.2 mg/dL (8.6-10.3); Chloride 105 mmol/L (101-111); EGFR African American 39.9 (>60); Globulin 3.1 g/dL (2-4); Glucose 130 mg/dL (70-100); Magnesium 1.5 mg/dL (1.9-2.7); Phosphorus 3.5 mg/dL (2.5-5.0); Potassium 4.6 mmol/L (3.5-5.0); Sodium 135 mmol/L (135-145); Total Protein 6.5 g/dL (6.4-8.9)
[2020-09-20 05:58] LABS: Troponin I 0.03 ng/mL (<0.03)
[2020-09-20] MEDS ORDERED: Magnesium Sulfate 2 gm BAG 2 GM/50 ML BAG IVPB ONE (06:24)
[2020-09-20] MEDS: cefTRIAXone 1 gm/50 mL NS BAG 1 GM/50 ML BAG IVPB SCH (08:27)
[2020-09-20] MEDS: Cholecalciferol (VIT D3) 1,000 unit TAB PO SCH (10:56)
[2020-09-20] MEDS: NFT: IPRATROPIUM BR (NF)0.03% NASAL 1 SPRAY BTL BOTH NARES SCH ×2 (10:56→22:03)
[2020-09-20 11:33] LABS: Troponin I 0.03 ng/mL (<0.03)
[2020-09-20] MEDS ORDERED: Dextrose 50% Syringe 50 ml 25 GM/50 ML SYRINGE IV PUSH PRN (16:29)
[2020-09-20 16:49] LABS: Troponin I 0.03 ng/mL (<0.03)
[2020-09-20] MEDS ORDERED: Insulin GLARGINE 100 un/ml 10 ml VIAL SUBCUT SCH (17:00)
[2020-09-20] MEDS: Azithromycin 500 mg/250 ml NS 500 MG/250 ML BAG IVPB SCH (19:49)
[2020-09-20] MEDS ORDERED: Senna TAB 8.6 mg TAB PO PRN (20:16)
[2020-09-20] MEDS: Insulin GLARGINE 100 un/ml 10 ml VIAL SUBCUT SCH (22:46)
[2020-09-21] MEDS ORDERED: Furosemide 40 mg/4 ml IV VIAL IV SLOW PU ONE (00:16)
[2020-09-21] MEDS: Albuterol/Ipratropium NEB.SOL (2.5/0.5 MG) 3 ML NEB.SOLN INH SCH ×6 (03:16→22:46)
[2020-09-21] MEDS ORDERED: LORazepam 2 mg VIAL 1 ml IV PUSH ONE (03:53)
[2020-09-21] MEDS ORDERED: Lorazepam PYXIS KEY PRN ×3 (03:53→13:24)
[2020-09-21 04:55] LABS: ABS Lymphocytes 0.4 10^3/ul (1.0-4.8); ABS Monocytes 0.2 10^3/ul (0-0.8); ABS Neutrophils 6.7 10^3/ul (1.5-7.7); Hematocrit 37 % (35-47); Hemoglobin 12.1 g/dL (12.0-16.0); Lymphocyte % 5.9 %; Mean Corpuscular HGB Conc 32 g/dL (31-36); Mean Corpuscular Hemoglobin 29 pg (27-31); Mean Corpuscular Volume 88 fL (80-97); Mean Platelet Volume 9.7 fL (7.4-10.4); Platelet Count 139 10^3/uL (150-450); Red Blood Count 4.22 10^6 /uL (3.70-4.87); Red Cell Distribution Width 17 % (10-15); White Blood Count 7.3 10^3/uL (3.5-10.8)
[2020-09-21 05:06] LABS: Urine Appearance Clear; Urine Bilirubin Negative (Negative); Urine Blood Negative (Negative); Urine Color Yellow; Urine Glucose Negative (Negative); Urine Ketones Negative (Negative); Urine Nitrite Negative (Negative); Urine Protein Negative (Negative); Urine Specific Gravity 1.008 (1.010-1.030); Urine Urobilinogen Negative (Negative)
[2020-09-21 05:12] LABS: Albumin 3.4 g/dL (3.2-5.2); BUN/Creatinine Ratio 23.2 (8-20); Calcium 8.5 mg/dL (8.6-10.3); EGFR African American 29.7 (>60); EGFR Non-African American 24.5 (>60); Globulin 3.4 g/dL (2-4); Magnesium 2.1 mg/dL (1.9-2.7); Phosphorus 3.7 mg/dL (2.5-5.0); Total Bilirubin 0.3 mg/dL (0.2-1.0); Total Protein 6.8 g/dL (6.4-8.9)
[2020-09-21] MEDS: methylPREDNISolone SOD 40 mg/ml 1 ml VIAL IV SCH ×3 (08:37→18:16)
[2020-09-21] MEDS: Cholecalciferol (VIT D3) 1,000 unit TAB PO SCH (09:02)
[2020-09-21] MEDS: cefTRIAXone 1 gm/50 mL NS BAG 1 GM/50 ML BAG IVPB SCH (09:13)
[2020-09-21] MEDS: NFT: IPRATROPIUM BR (NF)0.03% NASAL 1 SPRAY BTL BOTH NARES SCH ×2 (09:14→22:50)
[2020-09-21] MEDS ORDERED: LORazepam 2 mg VIAL 1 ml IV PUSH PRN (10:14)
[2020-09-21] MEDS: Pantoprazole VIAL 40 MG VIAL IV SCH ×2 (10:52→22:34)
[2020-09-21] MEDS ORDERED: Insulin GLARGINE 100 un/ml 10 ml VIAL SUBCUT SCH (11:00)
[2020-09-21] MEDS ORDERED: Bumetanide IV 10 MG in Premix IV 0 ML IV SCH (12:00)
[2020-09-21] MEDS ORDERED: LORazepam 2 mg VIAL 1 ml ONE (13:27)
[2020-09-21] MEDS: LORazepam 2 mg VIAL 1 ml IV PUSH PRN (13:36)
[2020-09-21] MEDS: Insulin GLARGINE 100 un/ml 10 ml VIAL SUBCUT SCH (22:34)
[2020-09-21] MEDS: Azithromycin 500 mg/250 ml NS 500 MG/250 ML BAG IVPB SCH (22:49)
[2020-09-21] MEDS: Oxymetazoline 0.05% NASAL SPR 15 ML BTL BOTH NARES SCH (22:51)
[2020-09-21] MEDS ORDERED: methylPREDNISolone SOD 40 mg/ml 1 ml VIAL IV SCH (23:13)
[2020-09-21] MEDS ORDERED: Digoxin IV 0.5 MG/2 ML AMP (0.25 MG/ML) IV SLOW PU ONE (23:59)
[2020-09-22] MEDS ORDERED: Digoxin IV 0.5 MG/2 ML AMP (0.25 MG/ML) ONE (00:02)
[2020-09-22] MEDS: methylPREDNISolone SOD 40 mg/ml 1 ml VIAL IV SCH ×2 (02:15→12:00)
[2020-09-22] MEDS: Morphine 2 MG/ML SYRINGE IV PRN ×2 (02:45→09:27)
[2020-09-22] MEDS: Albuterol/Ipratropium NEB.SOL (2.5/0.5 MG) 3 ML NEB.SOLN INH SCH ×4 (03:01→15:26)
[2020-09-22] MEDS: LORazepam 2 mg VIAL 1 ml IV PUSH PRN ×3 (04:19→17:46)
[2020-09-22 04:26] LABS: ABS Lymphocytes 0.4 10^3/ul (1.0-4.8); ABS Monocytes 0.3 10^3/ul (0-0.8); ABS Neutrophils 12.1 10^3/ul (1.5-7.7); Hematocrit 36 % (35-47); Hemoglobin 11.5 g/dL (12.0-16.0); Lymphocyte % 2.9 %; Mean Corpuscular HGB Conc 32 g/dL (31-36); Mean Corpuscular Hemoglobin 28 pg (27-31); Mean Corpuscular Volume 89 fL (80-97); Platelet Count 147 10^3/uL (150-450); Red Blood Count 4.08 10^6 /uL (3.70-4.87); Red Cell Distribution Width 17 % (10-15); White Blood Count 12.8 10^3/uL (3.5-10.8)
[2020-09-22 04:52] LABS: Albumin 3.4 g/dL (3.2-5.2); Albumin/Globulin Ratio 1.1 (1-3); BUN/Creatinine Ratio 22.2 (8-20); Calcium 8.6 mg/dL (8.6-10.3); EGFR African American 18.4 (>60); EGFR Non-African American 15.2 (>60); Globulin 3.1 g/dL (2-4); Magnesium 2.2 mg/dL (1.9-2.7); Phosphorus 4.7 mg/dL (2.5-5.0); Potassium 4.1 mmol/L (3.5-5.0); Total Bilirubin 0.3 mg/dL (0.2-1.0); Total Protein 6.5 g/dL (6.4-8.9)
[2020-09-22] MEDS: cefTRIAXone 1 gm/50 mL NS BAG 1 GM/50 ML BAG IVPB SCH (08:26)
[2020-09-22] MEDS: NFT: IPRATROPIUM BR (NF)0.03% NASAL 1 SPRAY BTL BOTH NARES SCH (10:28)
[2020-09-22] MEDS: Oxymetazoline 0.05% NASAL SPR 15 ML BTL BOTH NARES SCH (10:29)
[2020-09-22] MEDS: Pantoprazole VIAL 40 MG VIAL IV SCH (12:00)
[2020-09-22] MEDS ORDERED: Morphine 2 MG/ML SYRINGE IV PRN ×2 (16:52→17:12)
[2020-09-22] MEDS ORDERED: HYDROmorphone 1 MG/1 ML SYRINGE IV SLOW PU PRN (16:52)
[2020-09-22 17:08] VITALS: BP 101/59
[2020-09-22] MEDS ORDERED: LORazepam 2 mg VIAL 1 ml IV PUSH PRN (18:00)
[2020-09-22] MEDS ORDERED: LORazepam 2 mg VIAL 1 ml IV PUSH ONE (18:07)
[2020-09-22] MEDS ORDERED: Morphine 10 MG/ML VIAL (1 ml) IV ONE (18:07)
[2020-09-22] MEDS ORDERED: Morphine 10 MG/ML VIAL (1 ml) ONE (18:09)
[2020-09-22] MEDS ORDERED: Morphine 10 MG/ML VIAL (1 ml) IV PRN (18:56)
== END 2020-09-22 19:54 | disposition expired | DRG 196 ==
LOC: ED 16:52 → ICU 19:56
PROVIDERS: ADMIT Internal Medicine; ATTEND Internal Medicine